=== PATIENT | male | born 1990 | race African-American/Black ===

== ENCOUNTER 2016-11-25 19:32 | Emergency (ER) | payer OTHER ==
[~2016-11-25] VITALS: Ht 165.1 cm; Wt 63.5 kg
[2016-11-25 19:37] VITALS: TEMP 36.5; Ht 165.1 cm; Wt 63.5 kg
[2016-11-25] MEDS ORDERED: ACETAMINOPHEN 500 MG TAB PO STA (19:53)
[2016-11-25] MEDS ORDERED: IBUP-103 PO (19:53)
--- NOTE | 2016-11-25 20:03 | EMERGENCY ROOM VISIT NOTE ---
History Report prepared by Césaribblossom: Jaimee Andrade Under the Supervision of: Jonathan ParkO. First contact with patient: 19:39 Chief Complaint: BACK INJURY Stated Complaint: BACK INJURY History of Present Illness The patient is a 26 year old male who presents to the Emergency Room with complaints of a sudden back injury that occurred yesterday around 1315. He has been describing his pain as a shooting pain and rates it a 4/10 in severity. The patient states that he was performing a "triple-back" in a tumbling routine yesterday when he fell, injuring his back. The patient states that he landed hyper-flexed forward. He states that he was evaluated by the certified athletic trainer and was stretched out and given ice. The patient reports that he went home and took a warm shower and when he woke today he worked some classes. He states that he has been noticing mid back pain between his shoulder blades. The patient denies any neck pain, weakness, fever, chills, nausea, or vomiting. He states that his body will not stop shaking. The patient denies any active medical problems or taking any medications daily. He states that he smokes cigarettes daily. Source of History: patient Onset: yesterday around 1315 Position: back Symptom Intensity: 4/10 Quality: other (shooting) Timing: other (sudden) Associated Symptoms: No fevers, No chills, No nausea, No vomiting Review of Systems See HPI for pertinent positives & negatives. A total of 10 systems reviewed and were otherwise negative. Past Medical & Surgical Medical Problems: (1) No active medical problems Family History No pertinent family history stated. Social History Smoking Status: Current Every Day Smoker Marital Status: single Occupation Status: employed Current/Historical Medications Scheduled PRN Ibuprofen Tab (Advil), 400-600 MG PO Q6H PRN for Pain Allergies Coded Allergies: Amoxicillin (Verified Allergy, Severe, ANAPHYLAXIS, 11/25/16) Penicillins (Verified Allergy, Severe, ANAPHYLAXIS, 11/25/16) Physical Exam Vital Signs Date Time Temp Pulse Resp B/P (MAP) Pulse Ox O2 Delivery O2 Flow Rate FiO2 11/25/16 21:46 92 18 139/76 98 11/25/16 20:50 100 18 152/91 98 Room Air 11/25/16 19:37 36.5 89 20 146/94 100 Room Air Physical Exam GENERAL: Patient is awake, alert, appears anxious and uncomfortable. EYES: The conjunctivae are clear. The pupils are round and reactive. EARS, NOSE, MOUTH AND THROAT: The nose is without any evidence of any deformity. Mucous membranes are moist tongue is midline NECK: Lower cervical spine tenderness to palpation, range of motion appears intact. RESPIRATORY: Normal respiratory effort is noted there is no evidence of wheezing rhonchi or rales CARDIOVASCULAR: Regular rate and rhythm noted there no murmurs rubs or gallops normal S1 normal S2 GASTROINTESTINAL: The abdomen is soft. Bowel sounds are present in all quadrants. Abdomen is nontender BACK: No lumbar tenderness to palpation, range of motion appears intact. Significant thoracic spine tenderness, between shoulder blades, range of motion elicited pain. MUSCULOSKELETAL/EXTREMITIES: There is no evidence of gross deformity full range of motion is noted in the hips and shoulders SKIN: There is no obvious evidence of any rash. There are no petechiae, pallor or cyanosis noted. NEUROLOGIC: Patient is awake alert and oriented x3 strength is symmetric patellar reflexes are 2+ bilaterally, Achilles tendon reflexes are + bilaterally , great toe raises are symmetric. Medical Decision & Procedures ER Provider Diagnostic Interpretation: Radiology results as stated below per my review and radiologist interpretation: THORACIC SPINE WITHOUT CLINICAL HISTORY: 26 years-old Male presenting with injury. TECHNIQUE: Multidetector CT of the thoracic spine was performed without the use of intravenous contrast. IV contrast: None. A dose lowering technique was used consistent with the principles of ALARA (as low as reasonably achievable). COMPARISON: None. CT DOSE (mGy.cm): The estimated cumulative dose is 1012.83 mGy.cm inclusive of the cervical spine. FINDINGS: Electric Container Tester topogram: Unremarkable. Tiny ossific fragment at the anterior aspect of the inferior endplate of T8 (series 401 image 32). Given the linear vertical configuration of this ossific density and lack of a clear donor site, this is felt to most likely be degenerative in etiology rather than representing an acute fracture. Vertebral body heights and alignment maintained. Intervertebral disc spaces preserved. No convincing evidence of an acute fracture. Paraspinal soft tissues within normal limits. Visualized portions of the lungs are clear. IMPRESSION: No convincing evidence of acute osseous injury of the thoracic spine. Electronically signed by: Nimesh West M.D. 11/25/2016 8:33 PM Dictated Date/Time: 11/25/2016 8:27 PM CERVICAL SPINE W/O CLINICAL HISTORY: 26 years-old Male presenting with injury. TECHNIQUE: Multidetector CT of the cervical spine was performed without the use of intravenous contrast. IV contrast: None. A dose lowering technique was used consistent with the principles of ALARA (as low as reasonably achievable). COMPARISON: None. CT DOSE (mGy.cm): The estimated cumulative dose is 1012.83 inclusive of the thoracic spine. FINDINGS: Electric Container Tester topogram: Unremarkable. Vertebral bodies maintain normal height and alignment. Intervertebral disc spaces preserved. No acute fracture or subluxation. No degenerative change. No osseous spinal canal or neural foraminal narrowing. Paraspinal soft tissues within normal limits. Airway patent. Lung apices clear. IMPRESSION: No acute osseous injury of the cervical spine. Electronically signed by: Nimesh West M.D. 11/25/2016 8:26 PM Dictated Date/Time: 11/25/2016 8:23 PM Medications Administered Medications (Trade) Dose Ordered Sig/Paresh Route Start Time Stop Time Status Last Admin Dose Admin Acetaminophen (Tylenol Tab) 1,000 mg NOW STAT PO 11/25/16 19:53 11/25/16 19:54 DC 11/25/16 20:04 1,000 MG Oxycodone HCl (Roxicodone Immediate Rel 5MG Home Pack) 1 homepack UD ONCE PO 11/25/16 21:00 11/25/16 21:01 DC 11/25/16 21:18 1 HOMEPACK ED Course 1947: The patient was evaluated in room C2B. A complete history and physical examination were performed. 1952: Ordered Tylenol Tab 1000 m PO. 2040: I reevaluated the patient and he is resting comfortably. I discussed the exam findings with him and I discussed the treatment plan. He verbalized complete understanding and agreement. The patient is ready to go home. 2099: Ordered Oxycodone HCl 1 homepack PO. Medical Decision Differential diagnosis: Etiologies such as fracture, dislocation, intra-abdominal, pneumothorax, intrathoracic , intracranial, neurologic, as well as other traumatic pathologies were entertained. The patient is a 26-year-old who presented to the emergency department for evaluation of back pain. 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 He had an injury yesterday where he had a hyperflexion of his lower neck and upper thoracic spine. The patient had reproducible pain in his mid thoracic spine. CT showed a questionable area of compression fracture. I discussed the patient's radiographic studies with him. He was treated with pain medication in the emergency department. He was encouraged to follow-up with his back specialist for further evaluation. He was also encouraged to rest and avoid any strenuous activity. He was also encouraged to return to the emergency apartment immediately if symptoms change worsen or the need arises. The patient was able to ambulate without difficulty. He had no focal neurologic deficit. Medication Reconcilliation Current Medication List: was personally reviewed by me Blood Pressure Screening Patient's blood pressure: Elevated blood pressure Blood pressure disposition: Elevated BP felt to be situational Impression Primary Impression: Compression fx, thoracic spine Scribe Attestation The scribe's documentation has been prepared under my direction and personally reviewed by me in its entirety. I confirm that the note above accurately reflects all work, treatment, procedures, and medical decision making performed by me. Departure Information Dispostion Home / Self-Care Forms HOME CARE DOCUMENTATION FORM, IMPORTANT VISIT INFORMATION Patient Instructions ED Fx Comp Vertebral, My [facility] Additional Instructions Continue using Motrin and Tylenol as directed for pain. Follow-up with your back specialist whenever you get home. Rest and avoid any strenuous activity. Return to the emergency Department immediately if symptoms change worsen or the need arises. Problem Qualifiers Primary Impression: Compression fx, thoracic spine Encounter type: initial encounter Fracture type: closed Qualified Codes: S22.000A - Wedge compression fracture of unspecified thoracic vertebra, initial encounter for closed fracture
--- NOTE | 2016-11-25 20:27 | DIAGNOSTIC IMAGING REPORT ---
CERVICAL SPINE W/O CLINICAL HISTORY: 26 years-old Male presenting with injury. TECHNIQUE: Multidetector CT of the cervical spine was performed without the use of intravenous contrast. IV contrast: None. A dose lowering technique was used consistent with the principles of ALARA (as low as reasonably achievable). COMPARISON: None. CT DOSE (mGy.cm): The estimated cumulative dose is 1012.83 inclusive of the thoracic spine. FINDINGS: Cement Production Plant Operator topogram: Unremarkable. Vertebral bodies maintain normal height and alignment. Intervertebral disc spaces preserved. No acute fracture or subluxation. No degenerative change. No osseous spinal canal or neural foraminal narrowing. Paraspinal soft tissues within normal limits. Airway patent. Lung apices clear. IMPRESSION: No acute osseous injury of the cervical spine. Electronically signed by: Nimesh West M.D. 11/25/2016 8:26 PM Dictated Date/Time: 11/25/2016 8:23 PM
--- NOTE | 2016-11-25 20:35 | DIAGNOSTIC IMAGING REPORT ---
THORACIC SPINE WITHOUT CLINICAL HISTORY: 26 years-old Male presenting with injury. TECHNIQUE: Multidetector CT of the thoracic spine was performed without the use of intravenous contrast. IV contrast: None. A dose lowering technique was used consistent with the principles of ALARA (as low as reasonably achievable). COMPARISON: None. CT DOSE (mGy.cm): The estimated cumulative dose is 1012.83 mGy.cm inclusive of the cervical spine. FINDINGS: Poacher Operator topogram: Unremarkable. Tiny ossific fragment at the anterior aspect of the inferior endplate of T8 (series 401 image 32). Given the linear vertical configuration of this ossific density and lack of a clear donor site, this is felt to most likely be degenerative in etiology rather than representing an acute fracture. Vertebral body heights and alignment maintained. Intervertebral disc spaces preserved. No convincing evidence of an acute fracture. Paraspinal soft tissues within normal limits. Visualized portions of the lungs are clear. IMPRESSION: No convincing evidence of acute osseous injury of the thoracic spine. Electronically signed by: Nimesh West M.D. 11/25/2016 8:33 PM Dictated Date/Time: 11/25/2016 8:27 PM
[2016-11-25] MEDS ORDERED: OXYCODONE IR HOME PACK PO ONE (21:00)
[2016-11-25 21:46] VITALS: BP 139/76; PULSE 92; O2SAT 98
== END 2016-11-25 21:48 | disposition home or self-care (01) ==
LOC: C.EDC 19:39
DX: S22.000A Wedge compression fracture of unspecified thoracic vertebra, initial encounter for closed fracture (principal); X50.0XXA Overexertion from strenuous movement or load, initial encounter; Y93.43 Activity, gymnastics; Y99.8 Other external cause status; F17.210 Nicotine dependence, cigarettes, uncomplicated